=== PATIENT | female | born 1985 | race Caucasian/White ===

== ENCOUNTER 2016-07-06 12:05 | Emergency (ER) | payer OTHER | END 2016-07-06 15:31 | disposition home or self-care (01) | LOC: ER 12:05 | DX: R10.11 Right upper quadrant pain (principal); R10.13 Epigastric pain; R11.0 Nausea; R19.7 Diarrhea, unspecified; F32.9 Major depressive disorder, single episode, unspecified; E66.9 Obesity, unspecified; Z98.51 Tubal ligation status | CPT/HCPCS: 36415; 96374; 96375; J2060 ==